=== PATIENT | male | born 1935 | race Caucasian/White ===

== ENCOUNTER 2019-12-03 18:56 | Inpatient (IN) | payer MEDICARE, OTHER ==
[~2019-12-03] VITALS: Ht 162.6 cm; Wt 58.9 kg
[2019-12-03] MEDS ORDERED: LIDOCAINE 2%,20 ML JEL.PF.APP MM ONE ×2 (19:29→19:30)
--- NOTE | 2019-12-03 19:32 | NUR ---
Pt alert to person and place only, baseline dementia per . states decreased UOP x1 week, with only small amount of dribbling since yesterday. Pt states continuous feeling of having to urinate. Abd slightly distended. Denies abd pain. No tenderness noted upon palpation. Denies fever/chills. states he had one issue of urinary retention "many years ago."
--- NOTE | 2019-12-03 19:44 | NUR ---
Bladder scan 726. Golden inserted per MD order. Securement device applied. 792 of output noted upon insertion
--- NOTE | 2019-12-03 19:45 | NUR ---
Traveled to [place] with and Mailbox
[2019-12-03 19:53] LABS: MICROSCOPIC NOT IND
[2019-12-03 20:07] LABS: BASOPHILS % (AUTO) 0 % (0-1); EOSINOPHILS % (AUTO) 3 % (1-7); LYMPHOCYTES % (AUTO) 14 % (22-44); MEAN PLATELET VOLUME 6.6 fL (7.4-10.4); MONOCYTES % (AUTO) 10 % (2-9); NEUTROPHILS % (AUTO) 73 % (42-75); PLATELET COUNT 349 x10^3/uL (130-400); RED CELL DISTRIBUTION WIDTH 17.8 % (9.4-14.8)
[2019-12-03 20:16] LABS: ANION GAP 6 mmol/L (5-15); CALCIUM 8.7 mg/dL (8.5-10.1); CHLORIDE 91 mmol/L (98-107); CREATININE 0.95 mg/dL (0.7-1.3)
[2019-12-03 20:49] LABS: MD MORPH REVIEW ONLY
[2019-12-03 20:52] LABS: ANISOCYTOSIS 1+; MICROCYTOSIS 1+
[2019-12-03 20:53] LABS: HYPOCHROMIA 1+; OVALOCYTES 1+
[2019-12-03 20:54] LABS: <PLATELET ESTIMATE> ADEQUATE; <PLT MORPHOLOGY> NORMAL PLT MORPH
[2019-12-03] MEDS ORDERED: ENALAPRILAT 1.25 MG/ML, 1ML ONE (21:58)
[2019-12-03] MEDS ORDERED: ENALAPRILAT 1.25 MG/ML, 2ML IV PRN (22:00)
--- NOTE | 2019-12-03 22:17 | NUR ---
Provider at bedside during vasotec admin. BP 170/112 immediately prior to admin. This RN will continue to monitor
--- NOTE | 2019-12-03 22:50 | NUR ---
Report given to Purnima/Ewa RNs
--- NOTE | 2019-12-03 22:52 | NUR ---
, Janny , states to call at any time with any questions patient is unable to answer
[2019-12-03] MEDS ORDERED: ACETAMINOPHEN 325 MG TABLET PO PRN (23:00)
[2019-12-03] MEDS: ENOXAPARIN 40 MG/0.4 ML SQ SCH (23:00)
[2019-12-03] MEDS ORDERED: DOCUSATE 100 MG CAPSULE PO PRN (23:00)
[2019-12-03 23:06] VITALS: BP 195/87
[2019-12-03] MEDS: SODIUM CHLORIDE 0.9% 1,000 ML IV SCH (23:50)
[2019-12-04 00:32] LABS: CHLORIDE,URINE RANDOM 66 mmol/L; POTASSIUM,URINE RANDOM 25 mmol/L; SODIUM,URINE RANDOM 51 mmol/L
[2019-12-04 00:59] LABS: OSMOLALITY,URINE 435 mOsm/kg (500-850)
[2019-12-04] MEDS: TRAZODONE 50MG TABLET PO SCH ×2 (01:26→20:54)
[2019-12-04 01:30] VITALS: BP 173/79
[2019-12-04] MEDS ORDERED: VENL150T PO (01:43)
[2019-12-04] MEDS ORDERED: MIRT-34 PO (01:44)
[2019-12-04 05:47] LABS: ANION GAP 5 mmol/L (5-15); CALCIUM 9.2 mg/dL (8.5-10.1); CHLORIDE 98 mmol/L (98-107); CREATININE 0.94 mg/dL (0.7-1.3)
[2019-12-04 05:55] LABS: BASOPHILS % (AUTO) 0 % (0-1); EOSINOPHILS % (AUTO) 3 % (1-7); LYMPHOCYTES % (AUTO) 12 % (22-44); MEAN CORPUSCULAR HEMOGLOBIN 22.3 pg (27.5-34.5); MEAN CORPUSCULAR HGB CONC 30.9 g/dL (33.2-36.2); MEAN PLATELET VOLUME 7.1 fL (7.4-10.4); MONOCYTES % (AUTO) 10 % (2-9); NEUTROPHILS % (AUTO) 75 % (42-75); PLATELET COUNT 358 x10^3/uL (130-400); RED BLOOD COUNT 5.65 x10^6/uL (4.38-5.82); RED CELL DISTRIBUTION WIDTH 17.8 % (9.4-14.8)
[2019-12-04 06:56] LABS: MD SCAN
[2019-12-04 09:15] LABS: ANION GAP 5 mmol/L (5-15); CALCIUM 8.9 mg/dL (8.5-10.1); CHLORIDE 99 mmol/L (98-107); CREATININE 0.89 mg/dL (0.7-1.3)
[2019-12-04 09:42] VITALS: BP 162/87
[2019-12-04] MEDS: VENLAFAXINE 75 MG CAP ER PO SCH (09:46)
[2019-12-04] MEDS ORDERED: TRAZ-175 PO (10:54)
[2019-12-04] MEDS ORDERED: LEVO50TA5 PO (10:54)
[2019-12-04] MEDS: TAMSULOSIN 0.4 MG CAP.ER.24H PO SCH (11:15)
[2019-12-04 12:28] LABS: ANION GAP 3 mmol/L (5-15); CHLORIDE 96 mmol/L (98-107); CREATININE 0.88 mg/dL (0.7-1.3)
[2019-12-04 13:56] VITALS: BP 147/64
[2019-12-04] MEDS: SODIUM CHLORIDE 0.9% 1,000 ML IV SCH (15:50)
[2019-12-04 16:57] LABS: ANION GAP 5 mmol/L (5-15); CALCIUM 8.7 mg/dL (8.5-10.1); CHLORIDE 96 mmol/L (98-107)
[2019-12-04 16:58] LABS: CREATININE 0.83 mg/dL (0.7-1.3)
[2019-12-04 19:26] VITALS: BP 152/64
[2019-12-04] MEDS ORDERED: MIRTAZAPINE 15 MG TABLET PO SCH (21:00)
[2019-12-04] MEDS: ENOXAPARIN 40 MG/0.4 ML SQ SCH (21:12)
[2019-12-05 03:08] VITALS: BP 181/91
[2019-12-05] MEDS: SODIUM CHLORIDE 0.9% 1,000 ML IV SCH ×2 (08:19)
[2019-12-05] MEDS: VENLAFAXINE 75 MG CAP ER PO SCH (08:19)
[2019-12-05] MEDS: TAMSULOSIN 0.4 MG CAP.ER.24H PO SCH (08:19)
[2019-12-05] MEDS ORDERED: TAMS-11 PO (09:11)
[2019-12-05] MEDS ORDERED: TRAZ50TA66 PO (09:19)
== END 2019-12-05 15:18 | disposition home or self-care (01) | DRG 70 ==
LOC: ED 19:26 → EDIP 21:35 → 5SO 22:53 → 3N 12-04 12:44
PROVIDERS: ADMIT Family Medicine; ATTEND Hospitalist
PROC: 0T9B70Z Drainage of Bladder with Drainage Device, Via Natural or Artificial Opening (ICD-10-PCS; principal; 2019-12-03)
DX: G93.41 Metabolic encephalopathy (principal); J96.00 Acute respiratory failure, unspecified whether with hypoxia or hypercapnia; E87.1 Hypo-osmolality and hyponatremia; N39.0 Urinary tract infection, site not specified; F33.9 Major depressive disorder, recurrent, unspecified; D50.9 Iron deficiency anemia, unspecified; E03.9 Hypothyroidism, unspecified; F03.90 Unspecified dementia, unspecified severity, without behavioral disturbance, psychotic disturbance, mood disturbance, and anxiety; H91.90 Unspecified hearing loss, unspecified ear; R33.9 Retention of urine, unspecified; I10 Essential (primary) hypertension; Z82.0 Family history of epilepsy and other diseases of the nervous system; Z83.3 Family history of diabetes mellitus; Z87.891 Personal history of nicotine dependence
CPT/HCPCS: 36415; 51702; 71045; 76770; 80048; 81003; 82436; 82728; 83540; 83550; 83930; 83935; 84133; 84300; 84443; 85025; 96374; 99285; G0378; J1650; J7030

== ENCOUNTER 2020-02-06 13:42 | Inpatient (IN) | payer MEDICARE ==
[~2020-02-06] VITALS: Ht 167.6 cm; Wt 55.1 kg
[~2020-02-06 13:42] MED LIST: LEVO50TA5 PO; MIRT-34 PO; TAMS-11 PO; TRAZ-175 PO; TRAZ50TA66 PO; VENL150T PO
[2020-02-06 14:42] LABS: BASOPHILS % (AUTO) 1 % (0-1); EOSINOPHILS % (AUTO) 1 % (1-7); LYMPHOCYTES % (AUTO) 10 % (22-44); MEAN CORPUSCULAR HEMOGLOBIN 21.8 pg (27.5-34.5); MEAN CORPUSCULAR HGB CONC 30.8 g/dL (33.2-36.2); MEAN PLATELET VOLUME 6.6 fL (7.4-10.4); MONOCYTES % (AUTO) 12 % (2-9); NEUTROPHILS % (AUTO) 76 % (42-75); PLATELET COUNT 360 x10^3/uL (130-400); RED BLOOD COUNT 4.35 x10^6/uL (4.38-5.82); RED CELL DISTRIBUTION WIDTH 16.6 % (9.4-14.8)
[2020-02-06 14:50] LABS: ALANINE AMINOTRANSFERASE 29 U/L (12-78); ALBUMIN 3.6 g/dL (3.4-5.0); ANION GAP 6 mmol/L (5-15); CALCIUM 8.9 mg/dL (8.5-10.1); CHLORIDE 98 mmol/L (98-107); CREATININE 1.09 mg/dL (0.7-1.3)
[2020-02-06 14:55] LABS: ALKALINE PHOSPHATASE 50 U/L (45-117); BILIRUBIN,TOTAL 0.3 mg/dL (0.2-1.0); TOTAL PROTEIN 6.8 g/dL (6.4-8.2); TROPONIN I < 0.015 ng/mL (0.000-0.045)
[2020-02-06 15:12] LABS: MD MORPH REVIEW ONLY
[2020-02-06 15:13] LABS: ANISOCYTOSIS 1+; MICROCYTOSIS 1+
[2020-02-06 15:14] LABS: HYPOCHROMIA 1+; OVALOCYTES 1+
[2020-02-06 15:15] LABS: TEAR DROPS 1+
[2020-02-06 15:16] LABS: <PLATELET ESTIMATE> ADEQUATE; <PLT MORPHOLOGY> NORMAL PLT MORPH
--- NOTE | 2020-02-06 16:01 | NUR ---
Straight cath urine, complete. Patient tolerated well, 350ml returned.
[2020-02-06 16:24] LABS: MICROSCOPIC NOT IND
--- NOTE | 2020-02-06 16:47 | NUR ---
Patient assisted with repositioning, no needs at this time, will continue to monitor.
--- NOTE | 2020-02-06 17:31 | NUR ---
TASK RN: PT RESTING IN [place] NOTED. AT BEDSIDE. ERP AT BEDSIDE TO DISCUSS FINDINGS/POC
--- NOTE | 2020-02-06 18:40 | NUR ---
PATIENT RESTING ON BED, NAD, NO NEEDS AT THIS TIME. STATES THAT DOES NOT SLEEP MORE THAN 2 HOURS NIGHTLY, FREQUENTLY RISES FROM BED AND IS AFRAID THAT HE WILL FALL WHILE ADMITTED. ASKS IF SHE MAY STAY WITH HER OVERNIGHT. NOTIFIED THAT SHE SHOULD SPEAK WITH FLOOR STAFF ONCE HE IS ADMITTED REGARDING STAYING.
--- NOTE | 2020-02-06 20:25 | NUR ---
REPORT TO TAYLER ROBISON
[2020-02-06 21:05] VITALS: BP 149/77
[2020-02-07] VITALS (8 sets, daily range): BP systolic 101–156; BP diastolic 49–80
[2020-02-07] MEDS ORDERED: TRAZODONE 50MG TABLET PO SCH (00:30)
[2020-02-07] MEDS: MIRTAZAPINE 15 MG TABLET PO SCH ×2 (00:44→20:50)
[2020-02-07] MEDS ORDERED: DOCUSATE 100 MG CAPSULE PO PRN (02:30)
[2020-02-07] MEDS ORDERED: ACETAMINOPHEN 325 MG TABLET PO PRN (02:30)
[2020-02-07] MEDS: LEVOTHYROXINE 50 MCG TABLET PO SCH (06:10)
[2020-02-07 07:24] LABS: BASOPHILS % (AUTO) 1 % (0-1); EOSINOPHILS % (AUTO) 2 % (1-7); LYMPHOCYTES % (AUTO) 12 % (22-44); MEAN CORPUSCULAR HEMOGLOBIN 22.1 pg (27.5-34.5); MEAN CORPUSCULAR HGB CONC 31.1 g/dL (33.2-36.2); MEAN PLATELET VOLUME 6.6 fL (7.4-10.4); MONOCYTES % (AUTO) 11 % (2-9); NEUTROPHILS % (AUTO) 75 % (42-75); PLATELET COUNT 324 x10^3/uL (130-400); RED BLOOD COUNT 4.42 x10^6/uL (4.38-5.82); RED CELL DISTRIBUTION WIDTH 16.7 % (9.4-14.8)
[2020-02-07 07:46] LABS: ALANINE AMINOTRANSFERASE 26 U/L (12-78); ALBUMIN 3.5 g/dL (3.4-5.0); ANION GAP 7 mmol/L (5-15); CALCIUM 8.8 mg/dL (8.5-10.1); CHLORIDE 98 mmol/L (98-107); CREATININE 1.02 mg/dL (0.7-1.3); MD NO
[2020-02-07 07:49] LABS: ALKALINE PHOSPHATASE 50 U/L (45-117); BILIRUBIN,TOTAL 0.4 mg/dL (0.2-1.0); TOTAL PROTEIN 6.4 g/dL (6.4-8.2)
[2020-02-07] MEDS: TAMSULOSIN 0.4 MG CAP.ER.24H PO SCH (08:35)
[2020-02-07] MEDS ORDERED: VENLAFAXINE 75 MG CAP ER PO SCH (09:00)
[2020-02-07] MEDS ORDERED: SODIUM CHLORIDE 0.9%, 500ML IVBOLUS ONE (12:30)
[2020-02-07] MEDS: MELATONIN 5 MG TABLET PO PRN (20:52)
[2020-02-08 00:39] VITALS: BP_SYST 198; BP_DIAS 68; BP_DIAS 86
[2020-02-08] MEDS ORDERED: hydrALAzine 20 MG/ML, 1ML IV ONE (01:00)
[2020-02-08 02:47] VITALS: BP 168/74
[2020-02-08] MEDS: LEVOTHYROXINE 50 MCG TABLET PO SCH (05:17)
[2020-02-08 05:48] LABS: BASOPHILS % (AUTO) 0 % (0-1); EOSINOPHILS % (AUTO) 0 % (1-7); LYMPHOCYTES % (AUTO) 4 % (22-44); MEAN CORPUSCULAR HEMOGLOBIN 21.4 pg (27.5-34.5); MEAN CORPUSCULAR HGB CONC 30.5 g/dL (33.2-36.2); MEAN PLATELET VOLUME 6.8 fL (7.4-10.4); MONOCYTES % (AUTO) 6 % (2-9); NEUTROPHILS % (AUTO) 90 % (42-75); PLATELET COUNT 390 x10^3/uL (130-400); RED BLOOD COUNT 4.49 x10^6/uL (4.38-5.82); RED CELL DISTRIBUTION WIDTH 16.6 % (9.4-14.8)
[2020-02-08 05:52] LABS: MD NO
[2020-02-08 05:59] LABS: CHLORIDE 94 mmol/L (98-107)
[2020-02-08 06:06] LABS: ALANINE AMINOTRANSFERASE 28 U/L (12-78); ALBUMIN 3.8 g/dL (3.4-5.0); ALKALINE PHOSPHATASE 54 U/L (45-117); ANION GAP 6 mmol/L (5-15); BILIRUBIN,TOTAL 0.4 mg/dL (0.2-1.0); CALCIUM 8.6 mg/dL (8.5-10.1); CREATININE 0.83 mg/dL (0.7-1.3)
[2020-02-08] MEDS ORDERED: POTASSIUM CHLORIDE 20 MEQ TAB.ER.PRT PO ONE (07:30)
[2020-02-08 07:57] VITALS: BP 161/77
[2020-02-08] MEDS: TAMSULOSIN 0.4 MG CAP.ER.24H PO SCH (09:55)
[2020-02-08] MEDS: AMLODIPINE 5 MG TABLET PO SCH (09:55)
[2020-02-08] MEDS: IRON SUCROSE COMPLEX 100MG/5ML IV SCH (09:55)
[2020-02-08] MEDS ORDERED: hydrALAzine 20 MG/ML, 1ML IV PRN (16:30)
[2020-02-08] MEDS ORDERED: LOVA20TA2 PO (16:31)
[2020-02-08] MEDS ORDERED: MELA3TAB62 PO (16:31)
[2020-02-08] MEDS ORDERED: ASPI-515 PO (16:31)
[2020-02-08] MEDS ORDERED: SENN-190 PO (16:31)
[2020-02-08] MEDS ORDERED: FESO4TAB PO (16:31)
[2020-02-08] MEDS ORDERED: BUPR100T11 PO (16:31)
[2020-02-08 18:40] LABS: ABSOLUTE RETICS # 0.056 x10^6/uL (0.5-1.5); RED BLOOD COUNT 4.43 x10^6/uL (4.38-5.82); RETICULOCYTE COUNT % 1.26 % (0.5-1.5)
[2020-02-08 19:20] VITALS: BP 188/53
[2020-02-08] MEDS: MIRTAZAPINE 15 MG TABLET PO SCH (20:31)
[2020-02-08] MEDS: MELATONIN 5 MG TABLET PO PRN (20:31)
[2020-02-08] MEDS ORDERED: TOLTERODINE 2MG TABLET PO SCH (21:00)
[2020-02-09 03:17] VITALS: BP 132/53
[2020-02-09 04:28] LABS: BASOPHILS % (AUTO) 0 % (0-1); EOSINOPHILS % (AUTO) 0 % (1-7); LYMPHOCYTES % (AUTO) 6 % (22-44); MEAN CORPUSCULAR HGB CONC 31.1 g/dL (33.2-36.2); MEAN PLATELET VOLUME 6.7 fL (7.4-10.4); MONOCYTES % (AUTO) 9 % (2-9); NEUTROPHILS % (AUTO) 85 % (42-75); PLATELET COUNT 392 x10^3/uL (130-400); RED CELL DISTRIBUTION WIDTH 16.9 % (9.4-14.8)
[2020-02-09 04:31] LABS: MD NO
[2020-02-09 04:37] LABS: CHLORIDE 94 mmol/L (98-107)
[2020-02-09 04:44] LABS: ALANINE AMINOTRANSFERASE 29 U/L (12-78); ALBUMIN 3.7 g/dL (3.4-5.0); ALKALINE PHOSPHATASE 51 U/L (45-117); ANION GAP 5 mmol/L (5-15); BILIRUBIN,TOTAL 0.4 mg/dL (0.2-1.0); CALCIUM 8.9 mg/dL (8.5-10.1); CREATININE 0.94 mg/dL (0.7-1.3); TOTAL PROTEIN 6.9 g/dL (6.4-8.2)
[2020-02-09] MEDS: LEVOTHYROXINE 50 MCG TABLET PO SCH (06:04)
[2020-02-09] MEDS: TAMSULOSIN 0.4 MG CAP.ER.24H PO SCH (09:38)
[2020-02-09] MEDS: IRON SUCROSE COMPLEX 100MG/5ML IV SCH (09:38)
[2020-02-09] MEDS: AMLODIPINE 5 MG TABLET PO SCH (09:38)
[2020-02-09 09:55] VITALS: BP 161/74
[2020-02-09] MEDS ORDERED: AMLO-150 PO (12:15)
[2020-02-09] MEDS ORDERED: TOLT2TAB16 PO (12:15)
[2020-02-09] MEDS ORDERED: FERR324T13 PO (12:18)
[2020-02-09 13:52] VITALS: BP 132/56
== END 2020-02-09 14:58 | disposition home health service (06) | DRG 641 ==
LOC: ED 18:10 → EDIP 18:38 → 3N 20:50
PROVIDERS: ADMIT Family Medicine; ATTEND Hospitalist
DX: E86.0 Dehydration (principal); R53.1 Weakness; E87.1 Hypo-osmolality and hyponatremia; R29.6 Repeated falls; F03.90 Unspecified dementia, unspecified severity, without behavioral disturbance, psychotic disturbance, mood disturbance, and anxiety; E03.9 Hypothyroidism, unspecified; D50.9 Iron deficiency anemia, unspecified; E87.6 Hypokalemia; H91.90 Unspecified hearing loss, unspecified ear; I10 Essential (primary) hypertension; N40.0 Benign prostatic hyperplasia without lower urinary tract symptoms; Z82.0 Family history of epilepsy and other diseases of the nervous system; Z83.3 Family history of diabetes mellitus; Z87.891 Personal history of nicotine dependence
CPT/HCPCS: 36415; 70450; 71045; 80053; 81003; 82607; 82728; 82962; 83540; 83550; 83735; 84100; 84443; 84484; 85014; 85018; 85025; 85045; 93005; 93306; 93978; G0378; J1756; J0360; J7040